=== PATIENT | female | born 1955 | race Caucasian/White ===

== ENCOUNTER 2020-03-08 09:30 | Emergency (ER) | payer MEDICARE, OTHER ==
[~2020-03-08] VITALS: Ht 160 cm; Wt 63.6 kg
[2020-03-08] MEDS ORDERED: ULTRAM50 MG PO (11:39)
[2020-03-08 11:45] VITALS: BP 123/69
== END 2020-03-08 11:45 | disposition home or self-care (01) ==
LOC: ED 09:30
PROC: 2W3UXYZ Immobilization of Right Toe using Other Device (ICD-10-PCS; principal; 2020-03-08)
DX: S97.111A Crushing injury of right great toe, initial encounter (principal); S90.111A Contusion of right great toe without damage to nail, initial encounter; S90.411A Abrasion, right great toe, initial encounter; I10 Essential (primary) hypertension; W20.8XXA Other cause of strike by thrown, projected or falling object, initial encounter; Y92.009 Unspecified place in unspecified non-institutional (private) residence as the place of occurrence of the external cause